=== PATIENT | female | born 2000 | race American Indian/Alaskan Native ===

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

== ENCOUNTER 2019-03-11 19:45 | Emergency (ER) | payer MEDICAID ==
[2019-03-11 20:44] VITALS: BP 135/68
--- NOTE | 2019-03-11 20:46 | Event Note ---
ED Screening Note Date of service: 03/11/19 Time: 20:39 ED Screening Note: 18 y o female presents with vaginal bleed x 3 says getting worse states found out she was 02/27 at [place] states she was 9 weeks This initial assessment/diagnostic orders/clinical plan/treatment(s) is/are sub ject to change based on patients health status, clinical progression and re- assessment by fellow clinical providers in the ED. Further treatment and workup at subsequent clinical providers discretion. Patient/guardian urged not to elope from the ED as their condition may be serious if not clinically assessed and managed. Initial orders include: labs us acc eval
[2019-03-11 21:11] LABS: Basophils # (Auto) 0.1 K/mm3 (0.0-0.1); Basophils % (Auto) 0.9 % (0.0-1.8); Eosinophils % (Auto) 0.7 % (0.0-4.3); Hematocrit 35.5 % (30.3-42.9); Hemoglobin 11.9 gm/dl (10.1-14.3); Lymphocytes # (Auto) 2.4 K/mm3 (1.2-5.4); Lymphocytes % (Auto) 40.9 % (13.4-35.0); Mean Corpuscular HGB Conc 33 % (30-34); Mean Corpuscular Volume 84 fl (79-97); Monocytes # (Auto) 0.8 K/mm3 (0.0-0.8); Monocytes % (Auto) 13.1 % (0.0-7.3); Platelet Count 326 K/mm3 (140-440); Red Blood Count 4.22 M/mm3 (3.65-5.03); Red Cell Distribution Width 13.7 % (13.2-15.2)
[2019-03-11 21:18] LABS: Bacteria,Urine 1+ /HPF (Negative); Bilirubin,Urine NEG (Negative); Blood,Urine LG (Negative); Color,Urine Yellow (Yellow); Mucus,Urine FEW /HPF; Urobilinogen,Urine < 2.0 mg/dL (<2.0)
--- NOTE | 2019-03-11 22:44 | Ultrasound Report ---
ULTRASOUND OBSTETRIC INDICATION / CLINICAL INFORMATION: vag bleed. TECHNIQUE: Transabdominal and Transvaginal. COMPARISON: None available. FINDINGS: GESTATIONAL SAC: Well-defined oval shape and intrauterine in location. YOLK SAC: No significant abnormality. EMBRYO/FETUS: No significant abnormality. - [place]-Rump Length = 0.31 cm = 5 weeks, 6 day(s). - Heart Rate, beats per minute (if present) = 149 ADNEXA: No significant abnormality. Right ovary appears within normal limits without cyst or mass samina suring 3.9 x 1.7 x 2.7 cm. Left ovary measures 3.5 x 2.5 x 3.1 cm and contains a small complex corpus luteal cyst measuring 1.5 x 1.0 x 1.7 cm. FREE FLUID: None. ADDITIONAL FINDINGS: Small 1 cm implantation bleed. Small 2.4 cm exophytic fibroid arising from uteri ne fundus IMPRESSION: 1. Single, living intrauterine with estimated sonographic age of 5 weeks, 6 day(s). 2. Small implantation bleed 3. Probable 2.4 cm fibroid within uterine fundus. Signer Name: Alber Mercer MD Signed: 03/11/2019 10:40 PM Workstation Name: [id number]
--- NOTE | 2019-03-11 22:44 | Ultrasound Report ---
ULTRASOUND OBSTETRIC INDICATION / CLINICAL INFORMATION: vag bleed. TECHNIQUE: Transabdominal and Transvaginal. COMPARISON: None available. FINDINGS: GESTATIONAL SAC: Well-defined oval shape and intrauterine in location. YOLK SAC: No significant abnormality. EMBRYO/FETUS: No significant abnormality. - [place]-Rump Length = 0.31 cm = 5 weeks, 6 day(s). - Heart Rate, beats per minute (if present) = 149 ADNEXA: No significant abnormality. Right ovary appears within normal limits without cyst or mass samina suring 3.9 x 1.7 x 2.7 cm. Left ovary measures 3.5 x 2.5 x 3.1 cm and contains a small complex corpus luteal cyst measuring 1.5 x 1.0 x 1.7 cm. FREE FLUID: None. ADDITIONAL FINDINGS: Small 1 cm implantation bleed. Small 2.4 cm exophytic fibroid arising from uteri ne fundus IMPRESSION: 1. Single, living intrauterine with estimated sonographic age of 5 weeks, 6 day(s). 2. Small implantation bleed 3. Probable 2.4 cm fibroid within uterine fundus. Signer Name: Alber Mercer MD Signed: 03/11/2019 10:40 PM Workstation Name: [id number]
--- NOTE | 2019-03-12 00:08 | Emergency Department Report ---
ED HPI - General Chief complaint: Vaginal Bleeding Stated complaint: PREG/11 WKS/VAG BLEEDING/ABD PAIN Time Seen by Provider: 03/11/19 20:38 Source: patient Mode of arrival: Ambulatory Limitations: No Limitations - History of Present Illness Initial comments: This is a 18-year-old female nontoxic, well nourished in appearance, no acute signs of distress presents to the ED with c/o of vaginal bleeding and pelvic cramping x3 days. Patient stated [facility] and was told is about 11 weeks by RN. Denies seeing a provider. Patient denies any abdominal pain. Patient denies any vaginal discharge or foul odor. Patient denies any nausea, vomiting, chest pain, shortness of breathe, fever, chills, headache, stiff neck, numbness, tingling. Patient denies any urinary symptoms. Patient denies any allergies or PMH. MD Complaint: vaginal bleeding -: days(s) (3) Location: pelvis Radiation: none Severity: mild Severity scale (0 -10): 3 Quality: cramping, aching Consistency: constant Improves with: none Worsens with: none Associated symptoms: vaginal bleeding. denies: nausea/vomiting, vaginal discharge, abdominal pain, dysuria, headache, vision changes, malaise, dysparuenia, rash, seizure, shortness of breath, syncope, weakness Vaginal bleeding: light :: Yes Pre- care: followed by OB - Related Data Previous Rx's Medication Instructions Recorded Last Taken Type Clindamycin [Clindamycin CAP] 300 mg PO Q8H 7 Days cap 10/13/17 Unknown Rx Ibuprofen [Motrin] 600 mg PO Q8H PRN #30 tablet 10/13/17 Unknown Rx Nystas/Diphen/Xyl Visc/Mylanta 15 ml MM Q4H PRN 7 Days ml 10/13/17 Unknown Rx [Magic Mouthwash] Prednisone [predniSONE 10 mg 10 mg PO .TAPER #1 tab.ds.pk 10/13/17 Unknown Rx (6-Day Pack, 21 Tabs)] Clindamycin [Clindamycin CAP] 300 mg PO Q8H 10 Days #30 cap 04/27/18 Unknown Rx Ibuprofen [Motrin] 800 mg PO Q8HR PRN #12 tablet 04/27/18 Unknown Rx Allergies Allergy/AdvReac Type Severity Reaction Status Date / Time No Known Allergies Allergy Verified 04/27/18 19:32 ED Review of Systems ROS: Stated complaint: PREG WKS/VAG BLEEDING/ABD PAIN Other details as noted in HPI Constitutional: denies: chills, fever Eyes: denies: eye pain, eye discharge, vision change ENT: denies: ear pain, throat pain Respiratory: denies: cough, shortness of breath, wheezing Cardiovascular: denies: chest pain, palpitations Endocrine: no symptoms reported Gastrointestinal: denies: abdominal pain, nausea, diarrhea Genitourinary: abnormal menses. denies: urgency, dysuria, discharge Musculoskeletal: denies: back pain, joint swelling, arthralgia Skin: denies: rash, lesions Neurological: denies: headache, weakness, paresthesias Psychiatric: denies: anxiety, depression Hematological/Lymphatic: denies: easy bleeding, easy bruising ED Past Medical Hx - Past Medical History Previous Medical History?: No Additional medical history: Abscess - Surgical History Past Surgical History?: No - Social History Smoking Status: Current Every Day Smoker Substance Use Type: None - Medications Home Medications: Home Medications Medication Instructions Recorded Confirmed Last Taken Type Clindamycin [Clindamycin CAP] 300 mg PO Q8H 7 Days cap 10/13/17 Unknown Rx Ibuprofen [Motrin] 600 mg PO Q8H PRN #30 tablet 10/13/17 Unknown Rx Nystas/Diphen/Xyl Visc/Mylanta 15 ml MM Q4H PRN 7 Days ml 10/13/17 Unknown Rx [Magic Mouthwash] Prednisone [predniSONE 10 mg 10 mg PO .TAPER #1 tab.ds.pk 10/13/17 Unknown Rx (6-Day Pack, 21 Tabs)] Clindamycin [Clindamycin CAP] 300 mg PO Q8H 10 Days #30 cap 04/27/18 Unknown Rx Ibuprofen [Motrin] 800 mg PO Q8HR PRN #12 tablet 04/27/18 Unknown Rx ED Physical Exam - General Limitations: No Limitations General appearance: alert, in no apparent distress - Head Head exam: Present: atraumatic, normocephalic - Neck Neck exam: Present: normal inspection, full ROM. Absent: tenderness, meningismus, lymphadenopathy - GI/Abdominal GI/Abdominal exam: Present: soft, normal bowel sounds. Absent: distended, tenderness, guarding, rebound, rigid, diminished bowel sounds - External exam: Present: normal external exam, other (chaperoned Sasha RN present during exam). Absent: erythema, swelling, lesions, lacerations, ecchymosis, bleeding Speculum exam: Present: vaginal bleeding, other (OS closed. chaperoned Sasha RN present during exam). Absent: erythema, vaginal discharge, cervical discharge, foreign body, tissue, laceration Bi-manual exam: Present: other (chaperoned Sasha RN present during exam). Absent: cervical motion tendernes, adnexal tenderness, adnexal mass, uterine enl argement, uterine tenderness - Extremities Exam Extremities exam: Present: normal inspection, full ROM - Back Exam Back exam: Present: normal inspection, full ROM. Absent: tenderness, CVA tenderness (R), CVA tenderness (L), muscle spasm, paraspinal tenderness, vertebral tenderness, rash noted - Neurological Exam Neurological exam: Present: alert, oriented X3, normal gait - Psychiatric Psychiatric exam: Present: normal affect, normal mood - Skin Skin exam: Present: warm, dry, intact, normal color. Absent: rash ED Course Vital Signs 03/11/19 20:39 Temperature 99.2 F Pulse Rate 79 Respiratory 18 Rate Blood Pressure 135/68 O2 Sat by Pulse 100 Oximetry - Reevaluation(s) Reevaluation #1: 03/12/19 00:10 Patient is speaking in full sentences with no signs of distress noted. - Consultations Consultation #1: 03/12/19 00:11 Patient has been consulted with Dr. Flanagan ([facility]) about patient history, physical exam, and labs/US report and stated patient can be discharged with follow-up appointment. ED Medical Decision Making - Lab Data Result diagrams: 03/11/19 20:55 - Medical Decision Making This is a 18-year-old female presents with threatened miscarriage. Patient is stable and was examined by me. Normal abdominal exam. US OB obtained and dictated by the radiologist. Ua obtained. Quantative serum test obtained. Patient notified of the US report with no questions noted by the patient. Patient was instructed f/u with [facility] in 3-5 days. RH factor positive. Labs within normal limits. At time of discharge, the patient does not seem toxic or ill in appearance. No acute signs of distress noted. Patient agrees to discharge treatment plan of care. No further questions noted by the patient. Critical care attestation.: If time is entered above; I have spent that time in minutes in the direct care of this critically ill patient, excluding procedure time. ED Disposition Clinical Impression: Threatened miscarriage Disposition: DC-01 TO HOME OR SELFCARE Is pt being admited?: No Does the pt Need Aspirin: No Condition: Stable Instructions: Threatened Miscarriage (ED) Additional Instructions: Follow-up with a OBGYN doctor in 3-5 days or if symptoms worsen and continue return to emergency room as soon as possible. [facility] [Primary Care Provider] - 3-5 Days [facility] [Referring] - 3-5 Days ANNA FLANAGAN MD [Staff Physician] - 3-5 Days [facility] [Provider Group] - 3-5 Days Forms: Work/School Release Form(ED)
== END 2019-03-12 00:21 | disposition home or self-care (01) ==
LOC: ED 19:45
DX: O20.0 Threatened abortion (principal); O99.331 Smoking (tobacco) complicating pregnancy, first trimester; Z3A.11 11 weeks gestation of pregnancy; Z79.899 Other long term (current) drug therapy
CPT/HCPCS: 36415; 76801; 76817; 81001; 84702; 85025; 86900; 86901

== ENCOUNTER 2020-05-09 21:31 | Emergency (ER) | payer MEDICAID ==
[2020-05-09 23:05] VITALS: BP 133/79
[2020-05-10] MEDS ORDERED: HYDROcodone/ACETAMINOPHEN 5-325 MG TAB PO ONE (01:16)
[2020-05-10] MEDS ORDERED: LIDOCAINE (1%) 10 MG/1 ML VIAL 20 ML MDV INFILTRATI ONE (01:16)
--- NOTE | 2020-05-10 02:24 | Emergency Department Report ---
- General Chief complaint: Skin/Abscess/Foreign Body Stated complaint: ABSCESS ON BUTTOCKS Time Seen by Provider: 05/10/20 00:48 Source: patient Mode of arrival: Ambulatory Limitations: No Limitations - History of Present Illness Initial comments: pt is a 19-year-old female presents emergency room with complaints of an abscess to the left buttock that began a week ago but worsened in the last 3 days. She states that it has been increasing in size and becoming more painful. She states that she has noticed a small amount of drainage. She states that she has been having chills but denies any fever. She denies any nausea, vomiting, diarrhea, rectal pain. She states that she has had these a few times in the past in the same area. She states that she has had to have I&D's in the past. No past medical history. No allergies to medications. Last menstrual cycle 04/21/2020. - Related Data Previous Rx's Medication Instructions Recorded Last Taken Type Clindamycin [Clindamycin CAP] 300 mg PO Q8H 7 Days cap 10/13/17 Unknown Rx Ibuprofen [Motrin] 600 mg PO Q8H PRN #30 tablet 10/13/17 Unknown Rx Nystas/Diphen/Xyl Visc/Mylanta 15 ml MM Q4H PRN 7 Days ml 10/13/17 Unknown Rx [Magic Mouthwash] Prednisone [predniSONE 10 mg 10 mg PO .TAPER #1 tab.ds.pk 10/13/17 Unknown Rx (6-Day Pack, 21 Tabs)] Clindamycin [Clindamycin CAP] 300 mg PO Q8H 10 Days #30 cap 04/27/18 Unknown Rx Ibuprofen [Motrin] 800 mg PO Q8HR PRN #12 tablet 04/27/18 Unknown Rx Acetaminophen/Codeine [Tylenol 1 tab PO Q6H PRN #10 tab 05/10/20 Unknown Rx /Codeine # 3 tab] Sulfamethoxazole/Trimethoprim 1 each PO BID 7 Days #14 tablet 05/10/20 Unknown Rx [Bactrim DS TAB] Allergies Allergy/AdvReac Type Severity Reaction Status Date / Time No Known Allergies Allergy Verified 04/27/18 19:32 Abscess Boil HPI - HPI Chief Complaint: Skin/Abscess/Foreign Body Stated Complaint: ABSCESS ON BUTTOCKS Time Seen by Provider: 05/10/20 00:48 Home Medications: Previous Rx's Medication Instructions Recorded Last Taken Type Clindamycin [Clindamycin CAP] 300 mg PO Q8H 7 Days cap 10/13/17 Unknown Rx Ibuprofen [Motrin] 600 mg PO Q8H PRN #30 tablet 10/13/17 Unknown Rx Nystas/Diphen/Xyl Visc/Mylanta 15 ml MM Q4H PRN 7 Days ml 10/13/17 Unknown Rx [Magic Mouthwash] Prednisone [predniSONE 10 mg 10 mg PO .TAPER #1 tab.ds.pk 10/13/17 Unknown Rx (6-Day Pack, 21 Tabs)] Clindamycin [Clindamycin CAP] 300 mg PO Q8H 10 Days #30 cap 04/27/18 Unknown Rx Ibuprofen [Motrin] 800 mg PO Q8HR PRN #12 tablet 04/27/18 Unknown Rx Acetaminophen/Codeine [Tylenol 1 tab PO Q6H PRN #10 tab 05/10/20 Unknown Rx /Codeine # 3 tab] Sulfamethoxazole/Trimethoprim 1 each PO BID 7 Days #14 tablet 05/10/20 Unknown Rx [Bactrim DS TAB] Allergies/Adverse Reactions: Allergies Allergy/AdvReac Type Severity Reaction Status Date / Time No Known Allergies Allergy Verified 04/27/18 19:32 ED Review of Systems ROS: Stated complaint: ABSCESS ON BUTTOCKS Other details as noted in HPI Comment: All other systems reviewed and negative ED Past Medical Hx - Past Medical History Previous Medical History?: No Additional medical history: Abscess, pneumonia - Social History Smoking Status: Never Smoker Substance Use Type: None - Medications Home Medications: Home Medications Medication Instructions Recorded Confirmed Last Taken Type Clindamycin [Clindamycin CAP] 300 mg PO Q8H 7 Days cap 10/13/17 Unknown Rx Ibuprofen [Motrin] 600 mg PO Q8H PRN #30 tablet 10/13/17 Unknown Rx Nystas/Diphen/Xyl Visc/Mylanta 15 ml MM Q4H PRN 7 Days ml 10/13/17 Unknown Rx [Magic Mouthwash] Prednisone [predniSONE 10 mg 10 mg PO .TAPER #1 tab.ds.pk 10/13/17 Unknown Rx (6-Day Pack, 21 Tabs)] Clindamycin [Clindamycin CAP] 300 mg PO Q8H 10 Days #30 cap 04/27/18 Unknown Rx Ibuprofen [Motrin] 800 mg PO Q8HR PRN #12 tablet 04/27/18 Unknown Rx Acetaminophen/Codeine [Tylenol 1 tab PO Q6H PRN #10 tab 05/10/20 Unknown Rx /Codeine # 3 tab] Sulfamethoxazole/Trimethoprim 1 each PO BID 7 Days #14 tablet 05/10/20 Unknown Rx [Bactrim DS TAB] ED Physical Exam - General Limitations: No Limitations General appearance: alert, in no apparent distress - Head Head exam: Present: atraumatic, normocephalic - Eye Eye exam: Present: normal appearance - ENT ENT exam: Present: mucous membranes moist - Respiratory Respiratory exam: Absent: respiratory distress, accessory muscle use - Neurological Exam Neurological exam: Present: alert, oriented X3 - Psychiatric Psychiatric exam: Present: normal affect, normal mood - Skin Skin exam: Present: warm, dry, other (3 cm area of induration and central fluctuance present to the left buttock near the gluteal cleft, no rectal or perineum involvement, no active drainage, no signficant surrounding erythema, 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: 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) ED Course Vital Signs 05/09/20 05/10/20 23:02 03:10 Temperature 98.7 F Pulse Rate 77 88 Respiratory 18 16 Rate Blood Pressure 133/79 O2 Sat by Pulse 94 100 Oximetry - I & D Left Buttocks Type of Procedure: Complex Site: left buttock near the gluteal cleft Blade Size: 11 I & D Procedure: betadine prep, sterile drapes applied, sterile dressing applied, gauze wick placed Progress: Prepped with Betadine, 6 cc of 1% lidocaine with epinephrine used as anesthetic, Betadine prep again, sterile drapes applied, 1 cm incision made with 11 blade, copious amounts of foul-smelling purulent drainage expressed, irrigated with saline, packed with iodoform gauze, patient tolerated well, no complications, bleeding controlled, sterile dressing applied Scrap Crane Operator during examination and procedure duncan Rudd ED Medical Decision Making - Lab Data Vital Signs 05/09/20 05/10/20 23:02 03:10 Temperature 98.7 F Pulse Rate 77 88 Respiratory 18 16 Rate Blood Pressure 133/79 O2 Sat by Pulse 94 100 Oximetry - Medical Decision Making pt is a 19-year-old female presents emergency room with complaints of an abscess to the left buttock that began a week ago but worsened in the last 3 days. She states that it has been increasing in size and becoming more painful. She states that she has noticed a small amount of drainage. She states that she has been having chills but denies any fever. She denies any nausea, vomiting, diarrhea, rectal pain. She states that she has had these a few times in the past in the same area. She states that she has had to have I&D's in the past. No past medical history. No allergies to medications. Last menstrual cycle 04/21/2020. VSS. on exam: 3 cm area of induration and central fluctuance present to the left buttock near the gluteal cleft, no rectal or perineum involvement, no active drainage, no signficant surrounding erythema, 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: tech. blaire I&D performed per procedure note with copious amounts of purulent drainage, iodoform packing placed. Advised patient that packing would need to be removed in 2 days and need to have the area reexamined. Patient will be referred to general surgery given frequent abscesses and to have wound assessed. Patient given prescription for Tylenol with codeine and Bactrim. Advised patient Please take medication as prescribed. Do not drive or operate machinery while taking pain medication. Packing needs to be removed in 2 days, please return to the emergency room. Please follow-up with a general surgeon. Return to emergency room for any new or worsening symptoms. Critical care attestation.: If time is entered above; I have spent that time in minutes in the direct care of this critically ill patient, excluding procedure time. ED Disposition Clinical Impression: Abscess of buttock, left Disposition: DC-01 TO HOME OR SELFCARE Is pt being admited?: No Does the pt Need Aspirin: No Condition: Stable Instructions: Skin Abscess, [id number], Incision and Drainage, Care After Additional Instructions: Please take medication as prescribed. Do not drive or operate machinery while taking pain medication. Packing needs to be removed in 2 days, please return to the emergency room. Please follow-up with a general surgeon. Return to emergency room for any new or worsening symptoms. Prescriptions: Sulfamethoxazole/Trimethoprim [Bactrim DS TAB] 1 each PO BID 7 Days #14 tablet Acetaminophen/Codeine [Tylenol /Codeine # 3 tab] 1 tab PO Q6H PRN #10 tab PRN Reason: pain Referrals: PRIMARY CARE, [Primary Care Provider] - 2-3 Days GABBY BRAMBILA DO [Staff Physician] - 2-3 Days Forms: Work/School Release Form(ED) Time of Disposition: 02:55 Print Language: GREENLANDIC
== END 2020-05-10 03:10 | disposition home or self-care (01) ==
LOC: ED 21:31
DX: L02.31 Cutaneous abscess of buttock (principal); Z79.899 Other long term (current) drug therapy
CPT/HCPCS: 99282

== ENCOUNTER 2022-01-10 11:44 | Emergency (ER) | payer MEDICAID ==
[2022-01-10] MEDS ORDERED: ACETAMINOPHEN 500 MG TAB PO ONE (14:48)
--- NOTE | 2022-01-10 14:51 | Emergency Department Report ---
- General Chief complaint: Skin/Abscess/Foreign Body Stated complaint: FEVER/ABSCESS ON BUTTOCKS Source: patient Mode of arrival: Ambulatory Limitations: No Limitations - History of Present Illness Initial comments: 21-year-old female presents to the ED complaining of abscess to the left buttock x2 days. Patient states that she has a 8-month-old that she is currently breast-feeding. States that she noticed a tender nodule and to her left buttock and has been doing warm sitz bath without any relief. Patient denies taking any [id number] medication. She denies having any fever chills or nausea or vomiting at present time. She states that pain is a current 8 out of 10. Patient is alert and oriented x3. No acute distress noted. No ill appearance noted. MD complaint: abscess/boil Severity scale (0 -10): 10 Quality: aching Consistency: constant Improves with: none Worsens with: none Context: none Associated symptoms: denies other symptoms - Related Data Previous Rx's Medication Instructions Recorded Last Taken Type Clindamycin [Clindamycin CAP] 300 mg PO Q8H 7 Days cap 10/13/17 Unknown Rx Ibuprofen [Motrin] 600 mg PO Q8H PRN #30 tablet 10/13/17 Unknown Rx Nystas/Diphen/Xyl Visc/Mylanta 15 ml MM Q4H PRN 7 Days ml 10/13/17 Unknown Rx [Magic Mouthwash] Prednisone [predniSONE 10 mg 10 mg PO .TAPER #1 tab.ds.pk 10/13/17 Unknown Rx (6-Day Pack, 21 Tabs)] Clindamycin [Clindamycin CAP] 300 mg PO Q8H 10 Days #30 cap 04/27/18 Unknown Rx Ibuprofen [Motrin] 800 mg PO Q8HR PRN #12 tablet 04/27/18 Unknown Rx Acetaminophen/Codeine [Tylenol 1 tab PO Q6H PRN #10 tab 05/10/20 Unknown Rx /Codeine # 3 tab] Sulfamethoxazole/Trimethoprim 1 each PO BID 7 Days #14 tablet 05/10/20 Unknown Rx [Bactrim DS TAB] Amoxicillin/K Clav Tab [Augmentin 1 tab PO Q12HR 10 Days #20 tab 01/10/22 Unknown Rx 875 mg] Allergies Allergy/AdvReac Type Severity Reaction Status Date / Time No Known Allergies Allergy Verified 01/10/22 12:47 Abscess Boil HPI - HPI Chief Complaint: Skin/Abscess/Foreign Body Stated Complaint: FEVER/ABSCESS ON BUTTOCKS Home Medications: Previous Rx's Medication Instructions Recorded Last Taken Type Clindamycin [Clindamycin CAP] 300 mg PO Q8H 7 Days cap 10/13/17 Unknown Rx Ibuprofen [Motrin] 600 mg PO Q8H PRN #30 tablet 10/13/17 Unknown Rx Nystas/Diphen/Xyl Visc/Mylanta 15 ml MM Q4H PRN 7 Days ml 10/13/17 Unknown Rx [Magic Mouthwash] Prednisone [predniSONE 10 mg 10 mg PO .TAPER #1 tab.ds.pk 10/13/17 Unknown Rx (6-Day Pack, 21 Tabs)] Clindamycin [Clindamycin CAP] 300 mg PO Q8H 10 Days #30 cap 04/27/18 Unknown Rx Ibuprofen [Motrin] 800 mg PO Q8HR PRN #12 tablet 04/27/18 Unknown Rx Acetaminophen/Codeine [Tylenol 1 tab PO Q6H PRN #10 tab 05/10/20 Unknown Rx /Codeine # 3 tab] Sulfamethoxazole/Trimethoprim 1 each PO BID 7 Days #14 tablet 05/10/20 Unknown Rx [Bactrim DS TAB] Amoxicillin/K Clav Tab [Augmentin 1 tab PO Q12HR 10 Days #20 tab 01/10/22 Unknown Rx 875 mg] Allergies/Adverse Reactions: Allergies Allergy/AdvReac Type Severity Reaction Status Date / Time No Known Allergies Allergy Verified 01/10/22 12:47 ED Review of Systems ROS: Stated complaint: FEVER/ABSCESS ON BUTTOCKS Other details as noted in HPI Constitutional: denies: chills, fever Eyes: denies: eye pain, eye discharge, vision change ENT: denies: ear pain, throat pain Respiratory: denies: cough, shortness of breath, wheezing Cardiovascular: denies: chest pain, palpitations Endocrine: no symptoms reported Gastrointestinal: denies: abdominal pain, nausea, diarrhea Genitourinary: denies: urgency, dysuria, discharge Musculoskeletal: denies: back pain, joint swelling, arthralgia Skin: rash, lesions Neurological: denies: headache, weakness, paresthesias Psychiatric: denies: anxiety, depression Hematological/Lymphatic: denies: easy bleeding, easy bruising ED Past Medical Hx - Past Medical History Additional medical history: Abscess, pneumonia - Social History Smoking Status: Never Smoker Substance Use Type: None - Medications Home Medications: Home Medications Medication Instructions Recorded Confirmed Last Taken Type Clindamycin [Clindamycin CAP] 300 mg PO Q8H 7 Days cap 10/13/17 Unknown Rx Ibuprofen [Motrin] 600 mg PO Q8H PRN #30 tablet 10/13/17 Unknown Rx Nystas/Diphen/Xyl Visc/Mylanta 15 ml MM Q4H PRN 7 Days ml 10/13/17 Unknown Rx [Magic Mouthwash] Prednisone [predniSONE 10 mg 10 mg PO .TAPER #1 tab.ds.pk 10/13/17 Unknown Rx (6-Day Pack, 21 Tabs)] Clindamycin [Clindamycin CAP] 300 mg PO Q8H 10 Days #30 cap 04/27/18 Unknown Rx Ibuprofen [Motrin] 800 mg PO Q8HR PRN #12 tablet 04/27/18 Unknown Rx Acetaminophen/Codeine [Tylenol 1 tab PO Q6H PRN #10 tab 05/10/20 Unknown Rx /Codeine # 3 tab] Sulfamethoxazole/Trimethoprim 1 each PO BID 7 Days #14 tablet 05/10/20 Unknown Rx [Bactrim DS TAB] Amoxicillin/K Clav Tab [Augmentin 1 tab PO Q12HR 10 Days #20 tab 01/10/22 Unknown Rx 875 mg] ED Physical Exam - General Limitations: No Limitations General appearance: alert, in no apparent distress - Head Head exam: Present: atraumatic, normocephalic - Eye Eye exam: Present: normal appearance - ENT ENT exam: Present: mucous membranes moist - Neck Neck exam: Present: normal inspection - Respiratory Respiratory exam: Present: normal lung sounds bilaterally. Absent: respiratory distress - Cardiovascular Cardiovascular Exam: Present: regular rate, normal rhythm. Absent: systolic murmur, diastolic murmur, rubs, gallop - GI/Abdominal GI/Abdominal exam: Present: soft, normal bowel sounds - Extremities Exam Extremities exam: Present: normal inspection - Back Exam Back exam: Present: normal inspection - Neurological Exam Neurological exam: Present: alert, oriented X3 - Psychiatric Psychiatric exam: Present: normal affect, normal mood - Skin Skin exam: Present: warm, dry, intact, normal color. Absent: rash ED Course Vital Signs 01/10/22 12:44 Temperature 100.9 F H Pulse Rate 100 H Respiratory 18 Rate Blood Pressure 130/84 [Left] O2 Sat by Pulse 100 Oximetry ED Medical Decision Making - Medical Decision Making 21-year-old female presents to the ED complaining of abscess to the left buttock x2 days. Patient states that she has a 8-month-old that she is currently breast-feeding. States that she noticed a tender nodule and to her left buttock and has been doing warm sitz bath without any relief. Patient denies taking any [id number] medication. She denies having any fever chills or nausea or vomiting at present time. She states that pain is a current 8 out of 10. Patient is alert and oriented x3. No acute distress noted. No ill appearance noted. Physical examination patient has hard tender nodule noted to the left bu ttock small area noted with fluctuant. Incision draining to the area. Mild purulent drainage expelled Rechecked the patient is resting quietly , comfortable and feeling better. I discussed the results of diagnostic study, my clinical impression and the plan for further treatment with the patient. Patient agrees with plan and discharge at this present time. All question addressed. I have given the patient instruction regarding a diagnosis ,expectation ,follow- up and return precaution. I explained to the patient that emergent condition may arise and to return to the ED for new worsen and any new persisting condition. I have explained the importance of following up with the primary care physician or referral physician listed below has instructed. The patient verbalized understanding of discharge instruction. Critical care attestation.: If time is entered above; I have spent that time in minutes in the direct care of this critically ill patient, excluding procedure time. ED Disposition Clinical Impression: Abscess Disposition: 01 HOME / SELF CARE / HOMELESS Is pt being admited?: No Does the pt Need Aspirin: No Condition: Stable Instructions: Skin Abscess, [id number] Additional Instructions: Continue to put to do warm sitz bath Take medication as prescribed May take Tylenol [id number] for fever or pain Prescriptions: Amoxicillin/K Clav Tab [Augmentin 875 mg] 1 tab PO Q12HR 10 Days #20 tab Referrals: [facility] [Provider Group] - 3-5 Days Forms: Work/School Release Form(ED) Time of Disposition: 14:55
[2022-01-10 15:25] VITALS: BP 136/81
== END 2022-01-10 16:00 | disposition home or self-care (01) ==
LOC: ED 11:44
DX: L02.31 Cutaneous abscess of buttock (principal)
CPT/HCPCS: 99282